=== PATIENT | male | born 1990 | race African-American/Black ===

== ENCOUNTER 2018-10-10 13:42 | Emergency (ER) | payer SELFPAY | END 2018-10-10 14:21 | disposition home or self-care (01) | LOC: MADERS 13:42 | DX: H10.9 Unspecified conjunctivitis (principal) | CPT/HCPCS: 99282 ==

== ENCOUNTER 2019-08-08 14:30 | Emergency (ER) | payer SELFPAY | END 2019-08-08 14:57 | disposition home or self-care (01) | LOC: MADERS 14:30 | DX: S10.91XA Abrasion of unspecified part of neck, initial encounter (principal); S00.411A Abrasion of right ear, initial encounter; Y04.0XXA Assault by unarmed brawl or fight, initial encounter | CPT/HCPCS: 99283 ==

== ENCOUNTER 2020-05-10 08:30 | Emergency (ER) | payer SELFPAY ==
[2020-05-10] MEDS ORDERED: Ondansetron PF 4 MG/2 ML Vial ONE (08:58)
[2020-05-10] MEDS ORDERED: Morphine 4 MG/ML VIAL ONE ×2 (08:58→09:37)
[2020-05-10 09:09] LABS: #Basophils 0.2 thou/uL (0.0-0.2); #Lymphocytes 1.3 thou/uL (1.20-3.40); #Monocytes 0.6 thou/uL (0.11-0.59); #Neutrophils 6.7 thou/uL (1.40-6.50); %Basophils 1.9 % (0.0-1.0); %Eosinophils 0.3 % (0.0-10.0); %Lymphocytes 15.2 % (21.0-51.0); %Monocytes 6.5 % (0.0-10.0); %Neutrophils 76.1 % (42.0-75.0); Hemoglobin 14.1 g/dL (14.0-18.0); Mean Corpuscular HGB CONC 30.9 g/dL (32.0-36.0); Mean Corpuscular Hemoglobin 26.7 pg (27.0-31.0); Mean Corpuscular Volume 86.3 fL (78.0-98.0); Mean Platelet Volume 9.4 fL (7.4-10.4); Platelet Count 236 thou/uL (130-400); RBC Distribution Width 12.5 % (11.5-14.5); White Blood Cell (WBC) Count 8.8 thou/uL (4.8-10.8)
[2020-05-10 09:28] LABS: ALT (SGPT) 27 U/L (8-55); AST (SGOT) 17 U/L (5-34); Albumin 4.3 g/dL (3.5-5.0); Alkaline Phosphatase 74 U/L (40-110); Anion Gap 14 mmol/L (10-20); BUN (Urea Nitrogen) 16 mg/dL (8.9-20.6); Bilirubin, Total 0.6 mg/dL (0.2-1.2); Calc. Creatinine Clearance 0 mL/min (70-130); Carbon Dioxide 25 mmol/L (22-29); Chloride 104 mmol/L (98-107); Globulin 3.4 g/dL (2.4-3.5); Glucose 186 mg/dL (70-105); Potassium 3.2 mmol/L (3.5-5.1); Protein, Total 7.7 g/dL (6.0-8.3); Sodium 140 mmol/L (136-145)
--- NOTE | 2020-05-10 09:29 | CT ---
CT Stone Protocol: 05/10/2020 9:22 AM HISTORY: Left lower quadrant abdominal pain COMPARISON: None. TECHNIQUE: Multiple contiguous axial images were obtained and a CT of the abdomen and pelvis without IV contrast . Coronal and sagittal reformats were performed. FINDINGS: This examination is limited for the evaluation of solid organs and vascular structures due to the lac k of intravenous contrast. Lower Chest: within normal limits. Abdomen: Liver: within normal limits. Bile Ducts: Normal caliber. Gallbladder: No calcified gallstones. Normal caliber wall. Pancreas: within normal limits. Spleen: within normal limits. Adrenals: within normal limits. Kidneys: Mild left hydronephrosis. Pelvis: Reproductive Organs: No pelvic masses. Ureters: There is a 1 mm calcification at the left ureterovesical junction with mild left hydroureter Bladder: within normal limits. Bowel: Normal caliber. Normal appendix. Mesenteric Lymph Nodes: No enlarged mesenteric lymph nodes. Peritoneum: No ascites or free air, no fluid collection. Vessels: Normal caliber aorta Retroperitoneum: within normal limits. Abdominal Wall: within normal limits. Bones: Unremarkable. IMPRESSION: Left distal ureteral calcification with mild left-sided hydronephrosis.
[2020-05-10] MEDS ORDERED: Tamsulosin HCl 0.4 MG CAP ONE (09:38)
[2020-05-10] MEDS ORDERED: Potassium Chloride 20 MEQ TAB ONE ×2 (09:38→10:22)
[2020-05-10 10:09] LABS: Bilirubin Negative (Negative); Blood, Urine Trace (Negative); Clarity Clear (Clear); Glucose, Urine (Dipstick) Negative (Negative); Ketone, Urine Negative (Negative); Leukocyte Negative (Negative); Nitrite Negative (Negative); Protein, Urine (Dipstick) Negative (Neg-Trace); Urobilinogen 0.2 mg/dL (Less than 2); pH, Urine 5.5 (5.0-9.0)
[2020-05-10 10:10] LABS: Specific Gravity, Urine 1.029 (1.002-1.036)
[2020-05-10 10:14] LABS: Bacteria/HPF Rare-Few HPF (None Seen); RBC/HPF 0-3 HPF (0-3); Squamous Epithelial 0-3 HPF (0-3); WBC/HPF 0-3 HPF (0-3)
[2020-05-10] MEDS ORDERED: Ketorolac Tromethamine 30 MG/ML VIAL ONE (10:22)
[2020-05-10] MEDS ORDERED: HYDROcodone/Acetaminophen 5/325 mg Tablet ONE (11:09)
== END 2020-05-10 11:20 | disposition home or self-care (01) ==
LOC: MADERS 08:30
DX: N13.2 Hydronephrosis with renal and ureteral calculous obstruction (principal); E87.6 Hypokalemia
CPT/HCPCS: 74176; 80053; 81003; 81015; 85025; 96374; 96375; 96376; J1885; J2270; J2405